=== PATIENT | male | born 1980 | race Two or more races ===

== ENCOUNTER 2022-02-13 20:40 | Emergency (ER) | payer OTHER ==
[2022-02-13 23:12] LABS: CORONAVIRUS 2019 SARS-COV-2 NEGATIVE (NEGATIVE); INFLUENZA A NAA NEGATIVE (NEGATIVE)
[2022-02-13] MEDS ORDERED: MEDROL 4MG DOSEP4 MG PO (23:36)
== END 2022-02-13 23:30 | disposition home or self-care (01) ==
LOC: FER 20:40
PROVIDERS: Nurse Practitioner Family
DX: B34.9 Viral infection, unspecified (principal); Z20.822 Contact with and (suspected) exposure to COVID-19
CPT/HCPCS: 87880; 93005; J7512; Q0162; U0002

== ENCOUNTER 2022-02-15 16:54 | Emergency (ER) | payer OTHER ==
[~2022-02-15 16:54] MED LIST: MEDROL 4MG DOSEP4 MG PO
[2022-02-15 18:22] LABS: BASOPHIL 0.4 % (0-2); EOSINOPHIL 0.6 % (0-5); HCT 44.7 % (42.0-52.0); HGB 14.8 g/dl (13.2-18.0); LYMPHOCYTE 34.1 % (15-48); MCH 29.2 pg (25.0-31.0); MCHC 33.1 g/dL (32.0-36.0); MCV 88.2 fL (78.0-100.0); MONOCYTE 7.9 % (0-12); MPV 9.4 fL (6.0-9.5); NEUTROPHIL 56.8 % (41-80); NRBC 0; PLT 157 K/uL (150-400); RBC 5.07 M/uL (4.70-6.00); RDW 12.5 % (11.5-14.0); WBC 5.3 K/uL (4.0-10.5)
[2022-02-15 18:38] LABS: BILIRUBIN NEGATIVE (NEGATIVE); BLOOD NEGATIVE Ery/uL (NEGATIVE); CLARITY CLEAR (CLEAR); COLOR YELLOW (YELLOW); GLUCOSE (U) NORMAL (NORMAL); LEUKOCYTES NEGATIVE Leu/uL (NEGATIVE); NITRITE NEGATIVE (NEGATIVE); PROTEIN NEGATIVE (NEGATIVE); SPECIFIC GRAVITY <=1.005 (1.001-1.030); UROBILINOGEN 0.2 mg/dL (0.2-1.0)
[2022-02-15 18:42] LABS: AMPHETAMINES NEGATIVE (NEGATIVE); BARBITURATES NEGATIVE (NEGATIVE); ECSTASY (MDMA) NEGATIVE (NEGATIVE); MARIJUANA (THC) NEGATIVE (NEGATIVE); METHADONE NEGATIVE (NEGATIVE); OPIATES NEGATIVE (NEGATIVE); OXYCODONE NEGATIVE (NEGATIVE)
[2022-02-15 19:04] LABS: BILIRUBIN - TOTAL 0.4 mg/dL (0.2-1.0); BUN/CREAT RATIO (CALC) 9.5 RATIO; CREATININE 1.16 mg/dL (0.67-1.17); GLOBULIN (CALCULATION) 3.8 g/dL; POTASSIUM 3.9 mmol/L (3.5-5.1); TOTAL PROTEIN 7.8 g/dL (6.4-8.2)
[2022-02-15] MEDS ORDERED: ATARAX25 MG PO (20:09)
== END 2022-02-15 20:29 | disposition home or self-care (01) ==
LOC: FER 16:54
PROVIDERS: Physician Assistant
DX: F41.9 Anxiety disorder, unspecified (principal)
CPT/HCPCS: 36415; 80053; 80305; 81003; 84484; 85025; 93005